=== PATIENT | female | born 1990 | race Two or more races ===

== ENCOUNTER 2021-11-11 11:12 | Emergency (ER) | payer OTHER ==
[~2021-11-11] VITALS: Ht 167.6 cm; Wt 110.7 kg
[2021-11-11 12:17] VITALS: BP 131/100
== END 2021-11-11 13:44 | disposition home or self-care (01) ==
LOC: ER 11:12
DX: R51.9 Headache, unspecified (principal); M25.561 Pain in right knee; V47.5XXA Car driver injured in collision with fixed or stationary object in traffic accident, initial encounter; Y93.89 Activity, other specified; Y92.89 Other specified places as the place of occurrence of the external cause; Y99.8 Other external cause status
CPT/HCPCS: 70450; 73562

== ENCOUNTER 2023-12-19 05:05 | Emergency (ER) | payer OTHER ==
[~2023-12-19] VITALS: Ht 167.6 cm; Wt 116.4 kg
[2023-12-19 05:22] VITALS: BP 138/88; PULSE 78; RESP 18; TEMP 98.5; O2SAT 98
[2023-12-19] MEDS ORDERED: AUG875T PO (05:31)
[2023-12-19] MEDS ORDERED: CARB6.5S44 OT (05:31)
== END 2023-12-19 06:01 | disposition home or self-care (01) ==
LOC: ER 05:05
DX: H61.23 Impacted cerumen, bilateral (principal); H66.93 Otitis media, unspecified, bilateral

== ENCOUNTER 2023-12-22 06:24 | Emergency (ER) | payer OTHER ==
[~2023-12-22] VITALS: Ht 167.6 cm; Wt 116.2 kg
[~2023-12-22 06:24] MED LIST: AUG875T PO; CARB6.5S44 OT
[2023-12-22 07:37] VITALS: BP 135/96; PULSE 78; RESP 15; TEMP 98.2; O2SAT 97
== END 2023-12-22 08:02 | disposition home or self-care (01) ==
LOC: ER 06:24
DX: H61.23 Impacted cerumen, bilateral (principal)
CPT/HCPCS: 69209